=== PATIENT | female | born 1935 | race Caucasian/White ===

== ENCOUNTER 2017-09-26 15:15 | Emergency (ER) | payer MEDICARE, MEDICAID ==
[~2017-09-26] VITALS: Ht 154.9 cm; Wt 113.6 kg
[~2017-09-26 15:15] MED LIST: ACAI500C PO; ATOR20TA66 PO; TICA90TA2 PO; VITA100T PO; Vit D PO
[2017-09-26 15:57] LABS: BASOPHILS % (AUTO) 0.5 % (0-1); EOSINOPHILS # (AUTO) 0.1 X10'3 (0-0.9); EOSINOPHILS % (AUTO) 1.9 % (0-6); HEMATOCRIT 40.1 % (35.0-45.0); HEMOGLOBIN 14.1 g/dl (12.0-16.0); LYMPHOCYTES # (AUTO) 0.6 X10'3 (1.1-4.8); LYMPHOCYTES % (AUTO) 8.9 % (21-51); MEAN CORPUSCULAR HEMOGLOBIN 33.8 PG (27.0-31.0); MEAN CORPUSCULAR HGB CONC 35.2 % (33.0-36.5); MEAN CORPUSCULAR VOLUME 95.9 FL (78-98); MEAN PLATELET VOLUME 8.9 FL (7.4-10.4); MONOCYTES # (AUTO) 0.5 X10'3 (0-0.9); MONOCYTES % (AUTO) 7.5 % (2-12); NEUTROPHILS # (AUTO) 5.5 X10'3 (1.8-7.7); NEUTROPHILS % (AUTO) 81.2 % (42-75); PLATELET COUNT 211 X10'3 (140-440); RED BLOOD COUNT 4.18 X10'6 (4.20-5.60); RED CELL DISTRIBUTION WIDTH 12.6 % (11.5-14.5); WHITE BLOOD COUNT 6.8 X10'3 (4.5-11.0)
[2017-09-26 16:13] LABS: ALANINE AMINOTRANSFERASE 22 U/L (12-78); ALBUMIN 3.3 G/DL (3.4-5.0); ALBUMIN/GLOBULIN RATIO 0.8 (1.1-1.5); ALKALINE PHOSPHATASE 61 IU/L (46-116); ANION GAP 10 (8-16); ASPARTATE AMINO TRANSFERASE 10 U/L (10-37); BILIRUBIN,TOTAL 0.7 MG/DL (0.1-1.0); BLOOD UREA NITROGEN 11 MG/DL (7-18); CALCIUM 9.1 MG/DL (8.5-10.1); CHLORIDE 100 MMOL/L (99-107); CREATININE 0.92 MG/DL (0.40-0.90); GLUCOSE 268 MG/DL (70-104); POTASSIUM 4.2 MMOL/L (3.5-5.1); SODIUM 135 MMOL/L (135-145); TOTAL PROTEIN 7.5 G/DL (6.4-8.2); eGFR 58 ML/MIN
[2017-09-26] MEDS ORDERED: normal saline 1000ML IV soln IVB ONE (16:30)
[2017-09-26] MEDS ORDERED: furosemide 10 MG/1 ML 10ml inj IV ONE (16:35)
[2017-09-26] MEDS ORDERED: furosemide 40mg/4ml inj IV ONE (16:40)
[2017-09-26] MEDS ORDERED: AMOX-419 PO (16:44)
[2017-09-26 17:00] VITALS: BP 196/93
== END 2017-09-26 17:27 | disposition home or self-care (01) ==
LOC: ER 15:16
DX: S81.801D Unspecified open wound, right lower leg, subsequent encounter (principal); L03.115 Cellulitis of right lower limb; I10 Essential (primary) hypertension; E11.9 Type 2 diabetes mellitus without complications; G89.29 Other chronic pain; Z79.2 Long term (current) use of antibiotics; Z79.899 Other long term (current) drug therapy; W55.01XD Bitten by cat, subsequent encounter
CPT/HCPCS: 36415; 80053; 83605; 85025; 87040; 93925; 99285

== ENCOUNTER 2017-10-03 09:50 | Day surgery (SDC) | payer MEDICARE, MEDICAID ==
[~2017-10-03 09:50] MED LIST changes: +AMOX-419 PO
[2017-10-03] MEDS ORDERED: LIDOcaine 2% 5ml jelly ONE (11:36)
== END 2017-10-03 12:20 | disposition home or self-care (01) ==
LOC: WOUND CARE 09:50
PROVIDERS: ATTEND Surgery
DX: E11.622 Type 2 diabetes mellitus with other skin ulcer (principal); L97.212 Non-pressure chronic ulcer of right calf with fat layer exposed; I10 Essential (primary) hypertension; Z79.2 Long term (current) use of antibiotics
CPT/HCPCS: 36416; 82948; 97597; A6021; A6206; A6446

== ENCOUNTER 2017-10-10 10:08 | Day surgery (SDC) | payer MEDICARE, MEDICAID ==
[2017-10-10] MEDS ORDERED: LIDOcaine 2% 5ml jelly ONE (10:44)
[2017-10-10] MEDS ORDERED: NO HOME MEDS (14:30)
== END 2017-10-10 11:43 | disposition home or self-care (01) ==
LOC: WOUND CARE 10:08
PROVIDERS: ATTEND Surgery
DX: E11.622 Type 2 diabetes mellitus with other skin ulcer (principal); L97.212 Non-pressure chronic ulcer of right calf with fat layer exposed; I10 Essential (primary) hypertension; Z79.2 Long term (current) use of antibiotics
CPT/HCPCS: 82948; 97597; A6021; A6206

== ENCOUNTER 2017-10-17 10:00 | Day surgery (SDC) | payer MEDICARE, MEDICAID ==
[~2017-10-17 10:00] MED LIST changes: -ACAI500C PO; -AMOX-419 PO; -ATOR20TA66 PO; +NO HOME MEDS; -TICA90TA2 PO; -VITA100T PO; -Vit D PO
== END 2017-10-17 12:03 | disposition home or self-care (01) ==
LOC: WOUND CARE 10:00
PROVIDERS: ATTEND Surgery
DX: E11.622 Type 2 diabetes mellitus with other skin ulcer (principal); L97.212 Non-pressure chronic ulcer of right calf with fat layer exposed; I10 Essential (primary) hypertension; K21.9 Gastro-esophageal reflux disease without esophagitis; Z79.2 Long term (current) use of antibiotics; Z87.891 Personal history of nicotine dependence
CPT/HCPCS: 36416; 82948; 93970; 97597; A6021; A6206; A6441

== ENCOUNTER 2017-11-01 11:35 | Day surgery (SDC) | payer MEDICARE, MEDICAID | END 2017-11-01 14:30 | disposition home or self-care (01) | LOC: WOUND CARE 11:35 | PROVIDERS: ATTEND Surgery | DX: E11.622 Type 2 diabetes mellitus with other skin ulcer (principal); L97.212 Non-pressure chronic ulcer of right calf with fat layer exposed; E11.621 Type 2 diabetes mellitus with foot ulcer; L89.621 Pressure ulcer of left heel, stage 1; L97.421 Non-pressure chronic ulcer of left heel and midfoot limited to breakdown of skin; L97.511 Non-pressure chronic ulcer of other part of right foot limited to breakdown of skin; I10 Essential (primary) hypertension; K21.9 Gastro-esophageal reflux disease without esophagitis; Z79.2 Long term (current) use of antibiotics; Z87.891 Personal history of nicotine dependence | CPT/HCPCS: 36416; 82948; 97597; A4414; A6021; A6223; A6446 ==

== ENCOUNTER 2017-11-07 10:43 | Day surgery (SDC) | payer MEDICARE, MEDICAID | END 2017-11-07 11:44 | disposition home or self-care (01) | LOC: WOUND CARE 10:43 | PROVIDERS: ATTEND Surgery | DX: E11.622 Type 2 diabetes mellitus with other skin ulcer (principal); L97.212 Non-pressure chronic ulcer of right calf with fat layer exposed; E11.621 Type 2 diabetes mellitus with foot ulcer; L89.621 Pressure ulcer of left heel, stage 1; L97.421 Non-pressure chronic ulcer of left heel and midfoot limited to breakdown of skin; L97.511 Non-pressure chronic ulcer of other part of right foot limited to breakdown of skin; I10 Essential (primary) hypertension; K21.9 Gastro-esophageal reflux disease without esophagitis; Z79.2 Long term (current) use of antibiotics; Z87.891 Personal history of nicotine dependence | CPT/HCPCS: 36416; 82948; 97597; A6021; A6206; A6441 ==

== ENCOUNTER 2017-11-14 10:19 | Day surgery (SDC) | payer MEDICARE, MEDICAID | END 2017-11-14 12:22 | disposition home or self-care (01) | LOC: WOUND CARE 10:19 | PROVIDERS: ATTEND Surgery | DX: E11.622 Type 2 diabetes mellitus with other skin ulcer (principal); I83.022 Varicose veins of left lower extremity with ulcer of calf; L97.221 Non-pressure chronic ulcer of left calf limited to breakdown of skin; E11.621 Type 2 diabetes mellitus with foot ulcer; L89.621 Pressure ulcer of left heel, stage 1; L97.421 Non-pressure chronic ulcer of left heel and midfoot limited to breakdown of skin; I10 Essential (primary) hypertension; K21.9 Gastro-esophageal reflux disease without esophagitis; Z79.2 Long term (current) use of antibiotics; Z87.891 Personal history of nicotine dependence | CPT/HCPCS: 36416; 82948; 97597; A6021; A6222; A6441 ==

== ENCOUNTER 2017-11-21 10:30 | Outpatient (CLI) | payer MEDICARE, MEDICAID | END 2017-11-21 12:10 | disposition home or self-care (01) | LOC: WOUND CARE 10:30 → EDSTATUS 10:30 → WOUND CARE 12:10 | PROVIDERS: ATTEND Surgery | DX: E11.622 Type 2 diabetes mellitus with other skin ulcer (principal); I83.022 Varicose veins of left lower extremity with ulcer of calf; L97.221 Non-pressure chronic ulcer of left calf limited to breakdown of skin; L97.821 Non-pressure chronic ulcer of other part of left lower leg limited to breakdown of skin; E11.621 Type 2 diabetes mellitus with foot ulcer; L89.621 Pressure ulcer of left heel, stage 1; L97.421 Non-pressure chronic ulcer of left heel and midfoot limited to breakdown of skin; I10 Essential (primary) hypertension; K21.9 Gastro-esophageal reflux disease without esophagitis; Z79.2 Long term (current) use of antibiotics; Z87.891 Personal history of nicotine dependence | CPT/HCPCS: 29581; 82948; A6441 ==

== ENCOUNTER 2018-03-18 17:40 | Emergency (ER) | payer MEDICARE, MEDICAID ==
[~2018-03-18] VITALS: Ht 154.9 cm; Wt 120.5 kg
--- NOTE | 2018-03-18 17:57 | NUR ---
to bathroom with tech winter via w[place]
[2018-03-18] MEDS ORDERED: aspirin 81mg tab.chew PO ONE (18:00)
[2018-03-18 18:27] LABS: BASOPHILS % (AUTO) 0.5 % (0-1); EOSINOPHILS # (AUTO) 0.1 X10'3 (0-0.9); EOSINOPHILS % (AUTO) 2.2 % (0-6); HEMATOCRIT 41.5 % (35.0-45.0); HEMOGLOBIN 14.1 g/dl (12.0-16.0); LYMPHOCYTES # (AUTO) 1.3 X10'3 (1.1-4.8); LYMPHOCYTES % (AUTO) 20.4 % (21-51); MEAN CORPUSCULAR HEMOGLOBIN 33.5 PG (27.0-31.0); MEAN CORPUSCULAR HGB CONC 33.9 % (33.0-36.5); MEAN CORPUSCULAR VOLUME 98.8 FL (78-98); MONOCYTES # (AUTO) 0.7 X10'3 (0-0.9); MONOCYTES % (AUTO) 10.5 % (2-12); NEUTROPHILS # (AUTO) 4.2 X10'3 (1.8-7.7); NEUTROPHILS % (AUTO) 66.4 % (42-75); PLATELET COUNT 196 X10'3 (140-440); RED CELL DISTRIBUTION WIDTH 13.3 % (11.5-14.5); WHITE BLOOD COUNT 6.3 X10'3 (4.5-11.0)
[2018-03-18 18:46] LABS: ALANINE AMINOTRANSFERASE 24 U/L (12-78); ALBUMIN 3.4 G/DL (3.4-5.0); ALBUMIN/GLOBULIN RATIO 0.8 (1.1-1.5); ALKALINE PHOSPHATASE 64 IU/L (46-116); ANION GAP 11 (8-16); ASPARTATE AMINO TRANSFERASE 13 U/L (10-37); BILIRUBIN,TOTAL 0.5 MG/DL (0.1-1.0); BLOOD UREA NITROGEN 14 MG/DL (7-18); BUN/CREATININE RATIO 15.7 (6.6-38.0); CALCIUM 9.2 MG/DL (8.5-10.1); CHLORIDE 101 MMOL/L (99-107); CREATININE 0.89 MG/DL (0.40-0.90); GLUCOSE 243 MG/DL (70-104); POTASSIUM 4.1 MMOL/L (3.5-5.1); SODIUM 137 MMOL/L (135-145); TOTAL PROTEIN 7.5 G/DL (6.4-8.2); eGFR 61 ML/MIN
[2018-03-18 18:49] LABS: MAGNESIUM 1.5 MG/DL (1.5-2.4)
[2018-03-18 19:11] VITALS: BP 177/62
--- NOTE | 2018-03-18 19:11 | NUR ---
JOSEPH LYN WITH DC WITH CURRENT VITAL SIGNS
== END 2018-03-18 19:18 | disposition home or self-care (01) ==
LOC: ER 17:40
DX: R07.89 Other chest pain (principal); I10 Essential (primary) hypertension; E11.9 Type 2 diabetes mellitus without complications; G89.29 Other chronic pain
CPT/HCPCS: 36415; 71045; 80053; 83735; 83880; 84484; 85025; 93005; 99284

== ENCOUNTER 2018-11-06 10:16 | Day surgery (SDC) | payer MEDICARE, MEDICAID ==
[2018-11-06] MEDS ORDERED: LIDOcaine 2% 5ml jelly ONE (11:15)
== END 2018-11-06 12:14 | disposition home or self-care (01) ==
LOC: WOUND CARE 10:16
PROVIDERS: ATTEND Surgery
DX: E11.622 Type 2 diabetes mellitus with other skin ulcer (principal); I83.022 Varicose veins of left lower extremity with ulcer of calf; L97.221 Non-pressure chronic ulcer of left calf limited to breakdown of skin; I83.023 Varicose veins of left lower extremity with ulcer of ankle; L97.321 Non-pressure chronic ulcer of left ankle limited to breakdown of skin; E11.621 Type 2 diabetes mellitus with foot ulcer; I83.024 Varicose veins of left lower extremity with ulcer of heel and midfoot; L97.421 Non-pressure chronic ulcer of left heel and midfoot limited to breakdown of skin; I10 Essential (primary) hypertension; K21.9 Gastro-esophageal reflux disease without esophagitis; Z79.2 Long term (current) use of antibiotics; Z87.891 Personal history of nicotine dependence
CPT/HCPCS: 36416; 82948; 97597; A6223; A4663; A6021; A6441

== ENCOUNTER 2018-11-13 07:45 | Outpatient (CLI) | payer MEDICARE, MEDICAID | END 2018-11-13 12:50 | disposition home or self-care (01) | LOC: WOUND CARE 07:45 → EDSTATUS 10:30 → WOUND CARE 12:50 | PROVIDERS: ATTEND Surgery | DX: E11.622 Type 2 diabetes mellitus with other skin ulcer (principal); I83.022 Varicose veins of left lower extremity with ulcer of calf; L97.221 Non-pressure chronic ulcer of left calf limited to breakdown of skin; I83.023 Varicose veins of left lower extremity with ulcer of ankle; L97.321 Non-pressure chronic ulcer of left ankle limited to breakdown of skin; E11.621 Type 2 diabetes mellitus with foot ulcer; I83.024 Varicose veins of left lower extremity with ulcer of heel and midfoot; L97.428 Non-pressure chronic ulcer of left heel and midfoot with other specified severity; I10 Essential (primary) hypertension; K21.9 Gastro-esophageal reflux disease without esophagitis; Z79.2 Long term (current) use of antibiotics; Z87.891 Personal history of nicotine dependence | CPT/HCPCS: 29581; 93970; A4663; A6021; A6154; A6441 ==

== ENCOUNTER 2018-11-27 10:40 | Day surgery (SDC) | payer MEDICARE, MEDICAID ==
[2018-11-27] MEDS ORDERED: LIDOcaine 2% 5ml jelly ONE (11:19)
== END 2018-11-27 12:19 | disposition home or self-care (01) ==
LOC: WOUND CARE 10:40
PROVIDERS: ATTEND Surgery
DX: E11.622 Type 2 diabetes mellitus with other skin ulcer (principal); I83.022 Varicose veins of left lower extremity with ulcer of calf; L97.221 Non-pressure chronic ulcer of left calf limited to breakdown of skin; I83.023 Varicose veins of left lower extremity with ulcer of ankle; L97.321 Non-pressure chronic ulcer of left ankle limited to breakdown of skin; I83.012 Varicose veins of right lower extremity with ulcer of calf; L97.211 Non-pressure chronic ulcer of right calf limited to breakdown of skin; E11.621 Type 2 diabetes mellitus with foot ulcer; I83.024 Varicose veins of left lower extremity with ulcer of heel and midfoot; L89.621 Pressure ulcer of left heel, stage 1; L97.421 Non-pressure chronic ulcer of left heel and midfoot limited to breakdown of skin; I10 Essential (primary) hypertension; K21.9 Gastro-esophageal reflux disease without esophagitis; Z79.2 Long term (current) use of antibiotics; Z87.891 Personal history of nicotine dependence
CPT/HCPCS: 36416; 82948; 97597; A6223; A4663; A6021; A6441

== ENCOUNTER 2018-12-11 10:27 | Outpatient (CLI) | payer MEDICARE, MEDICAID | END 2018-12-11 13:00 | disposition home or self-care (01) | LOC: WOUND CARE 10:27 → EDSTATUS 10:30 → WOUND CARE 13:00 | PROVIDERS: ATTEND Surgery | DX: E11.622 Type 2 diabetes mellitus with other skin ulcer (principal); I83.022 Varicose veins of left lower extremity with ulcer of calf; L97.221 Non-pressure chronic ulcer of left calf limited to breakdown of skin; I83.023 Varicose veins of left lower extremity with ulcer of ankle; L97.321 Non-pressure chronic ulcer of left ankle limited to breakdown of skin; I83.012 Varicose veins of right lower extremity with ulcer of calf; L97.211 Non-pressure chronic ulcer of right calf limited to breakdown of skin; E11.621 Type 2 diabetes mellitus with foot ulcer; I83.024 Varicose veins of left lower extremity with ulcer of heel and midfoot; L89.620 Pressure ulcer of left heel, unstageable; L97.421 Non-pressure chronic ulcer of left heel and midfoot limited to breakdown of skin; I10 Essential (primary) hypertension; K21.9 Gastro-esophageal reflux disease without esophagitis; Z79.2 Long term (current) use of antibiotics; Z87.891 Personal history of nicotine dependence | CPT/HCPCS: 36416; 82948; G0463; A4663 ==

== ENCOUNTER 2019-09-02 10:00 | Day surgery (SDC) | payer MEDICARE, MEDICAID ==
[2019-09-02] MEDS ORDERED: LIDOcaine 2% 5ml jelly ONE (11:42)
== END 2019-09-02 12:28 | disposition home or self-care (01) ==
LOC: WOUND CARE 10:00
PROVIDERS: ATTEND Nurse Practitioner
DX: E11.622 Type 2 diabetes mellitus with other skin ulcer (principal); I83.022 Varicose veins of left lower extremity with ulcer of calf; L97.221 Non-pressure chronic ulcer of left calf limited to breakdown of skin; L97.821 Non-pressure chronic ulcer of other part of left lower leg limited to breakdown of skin; I83.023 Varicose veins of left lower extremity with ulcer of ankle; L97.321 Non-pressure chronic ulcer of left ankle limited to breakdown of skin; I83.012 Varicose veins of right lower extremity with ulcer of calf; L97.211 Non-pressure chronic ulcer of right calf limited to breakdown of skin; L97.811 Non-pressure chronic ulcer of other part of right lower leg limited to breakdown of skin; L98.411 Non-pressure chronic ulcer of buttock limited to breakdown of skin; E11.621 Type 2 diabetes mellitus with foot ulcer; I83.024 Varicose veins of left lower extremity with ulcer of heel and midfoot; L97.421 Non-pressure chronic ulcer of left heel and midfoot limited to breakdown of skin; E11.65 Type 2 diabetes mellitus with hyperglycemia; I10 Essential (primary) hypertension; K21.9 Gastro-esophageal reflux disease without esophagitis; Z79.2 Long term (current) use of antibiotics; Z87.891 Personal history of nicotine dependence
CPT/HCPCS: 36416; 82948; 87070; 87075; 87077; 87102; 87186; 97597; 97598

== ENCOUNTER 2019-09-09 13:15 | Day surgery (SDC) | payer MEDICARE, MEDICAID ==
[2019-09-09] MEDS ORDERED: LIDOcaine 2% 5ml jelly ONE (13:45)
[2019-09-09] MEDS ORDERED: silver sulfadiazine cream 50gm TP ONE (14:03)
== END 2019-09-09 14:46 | disposition home or self-care (01) ==
LOC: WOUND CARE 13:15
PROVIDERS: ATTEND Nurse Practitioner
DX: E11.622 Type 2 diabetes mellitus with other skin ulcer (principal); L97.811 Non-pressure chronic ulcer of other part of right lower leg limited to breakdown of skin; I83.012 Varicose veins of right lower extremity with ulcer of calf; L97.211 Non-pressure chronic ulcer of right calf limited to breakdown of skin; I83.022 Varicose veins of left lower extremity with ulcer of calf; L97.221 Non-pressure chronic ulcer of left calf limited to breakdown of skin; L97.821 Non-pressure chronic ulcer of other part of left lower leg limited to breakdown of skin; T23.021A Burn of unspecified degree of single right finger (nail) except thumb, initial encounter; E11.621 Type 2 diabetes mellitus with foot ulcer; I83.024 Varicose veins of left lower extremity with ulcer of heel and midfoot; L97.421 Non-pressure chronic ulcer of left heel and midfoot limited to breakdown of skin; I83.023 Varicose veins of left lower extremity with ulcer of ankle; L97.321 Non-pressure chronic ulcer of left ankle limited to breakdown of skin; L98.411 Non-pressure chronic ulcer of buttock limited to breakdown of skin; E11.65 Type 2 diabetes mellitus with hyperglycemia; I10 Essential (primary) hypertension; K21.9 Gastro-esophageal reflux disease without esophagitis; Z79.2 Long term (current) use of antibiotics; Z87.891 Personal history of nicotine dependence; X08.8XXA Exposure to other specified smoke, fire and flames, initial encounter; Y93.89 Activity, other specified; Y92.89 Other specified places as the place of occurrence of the external cause; Y99.8 Other external cause status
CPT/HCPCS: 36416; 82948; 97597

== ENCOUNTER 2019-09-17 13:10 | Day surgery (SDC) | payer MEDICARE, MEDICAID ==
[2019-09-17] MEDS ORDERED: LIDOcaine 2% 5ml jelly ONE (13:51)
[2019-09-17] MEDS ORDERED: silver sulfadiazine cream 50gm TP ONE (15:02)
== END 2019-09-17 15:23 | disposition home or self-care (01) ==
LOC: WOUND CARE 13:10
PROVIDERS: ATTEND Nurse Practitioner
DX: E11.622 Type 2 diabetes mellitus with other skin ulcer (principal); L97.821 Non-pressure chronic ulcer of other part of left lower leg limited to breakdown of skin; I83.022 Varicose veins of left lower extremity with ulcer of calf; L97.221 Non-pressure chronic ulcer of left calf limited to breakdown of skin; T23.021D Burn of unspecified degree of single right finger (nail) except thumb, subsequent encounter; I83.012 Varicose veins of right lower extremity with ulcer of calf; L97.211 Non-pressure chronic ulcer of right calf limited to breakdown of skin; E11.621 Type 2 diabetes mellitus with foot ulcer; I83.024 Varicose veins of left lower extremity with ulcer of heel and midfoot; L97.421 Non-pressure chronic ulcer of left heel and midfoot limited to breakdown of skin; I83.023 Varicose veins of left lower extremity with ulcer of ankle; L97.321 Non-pressure chronic ulcer of left ankle limited to breakdown of skin; L98.411 Non-pressure chronic ulcer of buttock limited to breakdown of skin; E11.65 Type 2 diabetes mellitus with hyperglycemia; I10 Essential (primary) hypertension; K21.9 Gastro-esophageal reflux disease without esophagitis; Z79.2 Long term (current) use of antibiotics; Z87.891 Personal history of nicotine dependence; X08.8XXD Exposure to other specified smoke, fire and flames, subsequent encounter
CPT/HCPCS: 16020; 36416; 82948; 93922; 93925; 97597

== ENCOUNTER 2020-05-28 13:41 | Outpatient (CLI) | payer MEDICARE, MEDICAID | END 2020-05-28 23:59 | disposition home or self-care (01) | LOC: VAS 13:41 | PROVIDERS: ATTEND Internal Medicine Interventional Cardiology | DX: I65.23 Occlusion and stenosis of bilateral carotid arteries (principal); I25.10 Atherosclerotic heart disease of native coronary artery without angina pectoris; R06.02 Shortness of breath; E78.49 Other hyperlipidemia; R60.0 Localized edema; I48.91 Unspecified atrial fibrillation; E11.9 Type 2 diabetes mellitus without complications | CPT/HCPCS: 93880 ==

== ENCOUNTER 2020-10-21 12:34 | Emergency (ER) | payer MEDICARE, MEDICAID ==
[~2020-10-21] VITALS: Ht 157.5 cm; Wt 122.7 kg
[~2020-10-21 12:34] MED LIST changes: +ASPI-1397 PO; +FURO20TA4 PO; +LOSA25TA41 PO; +METF-900 PO; -NO HOME MEDS
[2020-10-21 16:34] LABS: ALANINE AMINOTRANSFERASE 16 U/L (12-78); ALBUMIN 2.8 G/DL (3.4-5.0); ALBUMIN/GLOBULIN RATIO 0.6 (1.1-1.5); ALKALINE PHOSPHATASE 113 IU/L (46-116); ANION GAP 8 (8-16); ASPARTATE AMINO TRANSFERASE 16 U/L (10-37); BILIRUBIN,TOTAL 0.6 MG/DL (0.1-1.0); BLOOD UREA NITROGEN 10 MG/DL (7-18); BUN/CREATININE RATIO 12.7 (6.6-38.0); CALCIUM 8.9 MG/DL (8.5-10.1); CHLORIDE 105 MMOL/L (99-107); CREATININE 0.79 MG/DL (0.40-0.90); GLUCOSE 137 MG/DL (70-104); MAGNESIUM 1.5 MG/DL (1.5-2.4); POTASSIUM 4.2 MMOL/L (3.5-5.1); SODIUM 140 MMOL/L (135-145); TOTAL CARBON DIOXIDE 27.3 MMOL/L (24-32); TOTAL PROTEIN 7.4 G/DL (6.4-8.2); eGFR 69 ML/MIN
[2020-10-21 16:54] LABS: BASOPHILS # (AUTO) 0.1 X10'3 (0-0.2); BASOPHILS % (AUTO) 1.7 % (0-1); EOSINOPHILS % (AUTO) 13.8 % (0-6); HEMATOCRIT 39.7 % (35.0-45.0); HEMOGLOBIN 13.4 g/dl (12.0-16.0); LYMPHOCYTES # (AUTO) 1.5 X10'3 (1.1-4.8); LYMPHOCYTES % (AUTO) 21.7 % (21-51); MEAN CORPUSCULAR HEMOGLOBIN 32.1 PG (27.0-31.0); MEAN CORPUSCULAR HGB CONC 33.8 g/dL (33.0-36.5); MEAN CORPUSCULAR VOLUME 94.9 FL (78-98); MEAN PLATELET VOLUME 8.1 FL (7.4-10.4); MONOCYTES # (AUTO) 0.9 X10'3 (0-0.9); NEUTROPHILS # (AUTO) 3.6 X10'3 (1.8-7.7); NEUTROPHILS % (AUTO) 50.8 % (42-75); PLATELET COUNT 200 X10'3 (140-440); RED BLOOD COUNT 4.18 X10'6 (4.20-5.60); WHITE BLOOD COUNT 7.1 X10'3 (4.5-11.0)
[2020-10-21 17:10] VITALS: BP 170/93
[2020-10-21] MEDS ORDERED: ondansetron 4mg rapidly disintigrating tab PO ONE (17:25)
[2020-10-21] MEDS ORDERED: sulfamethoxazole/trimethoprim DS (800/160mg) tablet PO ONE (17:25)
[2020-10-21] MEDS ORDERED: SULF1TAB49 PO (17:26)
[2020-10-21] MEDS ORDERED: bacitracin 15gm ointment TP ONE (17:30)
== END 2020-10-21 18:15 | disposition home or self-care (01) ==
LOC: ER 12:34
DX: S90.921A Unspecified superficial injury of right foot, initial encounter (principal); I10 Essential (primary) hypertension; E11.9 Type 2 diabetes mellitus without complications; G89.29 Other chronic pain; Z72.89 Other problems related to lifestyle; Z79.82 Long term (current) use of aspirin; Z79.2 Long term (current) use of antibiotics; W22.8XXA Striking against or struck by other objects, initial encounter; Y93.89 Activity, other specified; Y92.89 Other specified places as the place of occurrence of the external cause; Y99.8 Other external cause status
CPT/HCPCS: 36415; 73630; 80053; 83605; 83735; 84145; 85025; 87040; 93005; 99285

== ENCOUNTER 2021-07-22 02:44 | Emergency (ER) | payer MEDICARE, MEDICAID ==
[~2021-07-22] VITALS: Ht 160 cm; Wt 113.6 kg
[~2021-07-22 02:44] MED LIST changes: -ASPI-1397 PO; -FURO20TA4 PO; -LOSA25TA41 PO; -METF-900 PO; +NO HOME MEDS
[2021-07-22] MEDS ORDERED: SULF1TAB45 PO (03:22)
[2021-07-22 04:27] VITALS: BP 161/70
--- NOTE | 2021-07-22 11:02 | NUR ---
PATIENT IS STILL IN WC IN THE ER LOBBY. [facility] ARRIVED EARLIER BUT PATIENT WAS UNABLE TO CLIMB UP INTO THE [facility]S TRUCK. ALTERNATE TRANSPORTATION ARRANGEMENTS WILL BE EXPLORED.
== END 2021-07-22 10:11 | disposition home or self-care (01) ==
LOC: ER 02:45
DX: E11.621 Type 2 diabetes mellitus with foot ulcer (principal); L97.419 Non-pressure chronic ulcer of right heel and midfoot with unspecified severity; I10 Essential (primary) hypertension; E11.9 Type 2 diabetes mellitus without complications; G89.29 Other chronic pain; Z72.89 Other problems related to lifestyle; Z79.899 Other long term (current) drug therapy
CPT/HCPCS: 73630; 82948; 99283; 99284

== ENCOUNTER 2021-09-01 11:03 | Emergency (ER) | payer MEDICARE, MEDICAID ==
[~2021-09-01] VITALS: Ht 157.5 cm; Wt 113.6 kg
[2021-09-01] MEDS ORDERED: acetaminophen 325mg tablet PO ONE (11:50)
[2021-09-01 15:43] VITALS: BP 124/62
--- NOTE | 2021-09-01 15:56 | NUR ---
Patient is for d/c home. Spoke to Anai, pt's daughter. She'll be home to receive pt.
== END 2021-09-01 16:38 | disposition home or self-care (01) ==
LOC: ER 11:04
DX: G89.29 Other chronic pain (principal); M25.562 Pain in left knee; R60.0 Localized edema; R53.1 Weakness; I10 Essential (primary) hypertension; E11.9 Type 2 diabetes mellitus without complications; Z79.899 Other long term (current) drug therapy
CPT/HCPCS: 93971; 99284